=== PATIENT | male | born 1985 | race Caucasian/White ===

== ENCOUNTER 2022-04-28 22:25 | Emergency (ER) | payer BC, SELFPAY ==
[2022-04-28 22:29] VITALS: BP 127/71; PULSE 94; RESP 16; TEMP 36.9; O2SAT 98
[2022-04-28 23:40] VITALS: PULSE 98; O2SAT 98
[2022-04-28 23:42] VITALS: BP 138/80; PULSE 89; O2SAT 100
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
[2022-04-29 02:46] VITALS: BP 112/71; PULSE 80; RESP 16; O2SAT 100
[2022-04-29 02:50] LABS: Add Manual Diff / Slide Review NO; Basophils Absolute Auto 0 /uL (0-100); Basophils Percent Auto 0.2 % (0-2); Eosinophils Absolute Auto 0 /uL (0-450); Eosinophils Percent Auto 0.3 % (2-4); Hemoglobin 14.2 g/dL (13.5-17.5); Lymphocytes Absolute Auto 1000 /uL (1100-4500); Lymphocytes Percent Auto 11.3 % (25-40); Mean Corpuscular HGB Conc 34.7 % (30-36); Mean Corpuscular Hemoglobin 32.2 PG (26-34); Mean Corpuscular Volume 92.7 fL (80-100); Monocytes Absolute Auto 300 /uL (0-900); Neutrophils Absolute Auto 7200 /uL (1500-7000); Neutrophils Percent Auto 84.2 % (50-75); Platelet Count 251 X10^3/uL (150-400); Red Blood Cell Count 4.42 X10^6/uL (4.5-5.9); Red Cell Distribution Width 13.1 % (11.6-14.8); White Blood Cell Count 8.5 X10^3/uL (4.5-11.0)
[2022-04-29 02:57] LABS: BUN Creatinine Ratio 18.3 (6-22); Blood Urea Nitrogen 17 mg/dL (9-20); Calcium 9.5 mg/dL (8.4-10.2); Carbon Dioxide 28 mmol/L (22-32); Chloride 105 mmol/L (98-107); Estimated Glomerular Filt Rate > 60 mL/min (>60); Glucose 116 mg/dL (70-100); HEMOLYSIS 19 (0-50); Potassium 3.9 mmol/L (3.4-5.1); Sodium 141 mmol/L (137-145)
[2022-04-29 04:51] VITALS: BP 103/75; PULSE 85; O2SAT 100
[2022-04-29] MEDS: CYCLOBENZAPRINE 10 MG PREPACK 1 BOTTLE MISC (04:59)
[2022-04-29] MEDS: ONDANSETRON 4 MG ODT PREPACK 1 BOTTLE MISC (04:59)
[2022-04-29] MEDS: OXYCODONE/APAP 5/325 PREPACK 1 BOTTLE MISC (04:59)
[2022-04-29 05:02] VITALS: PULSE 70; O2SAT 99
== END 2022-04-29 05:02 | disposition home or self-care (01) ==
PROVIDERS: Emergency Provider Emergency Medicine
DX: S01.81XA Laceration without foreign body of other part of head, initial encounter (principal); S32.019A Unspecified fracture of first lumbar vertebra, initial encounter for closed fracture; S32.029A Unspecified fracture of second lumbar vertebra, initial encounter for closed fracture; S32.039A Unspecified fracture of third lumbar vertebra, initial encounter for closed fracture; W19.XXXA Unspecified fall, initial encounter
CPT/HCPCS: 13132; 36415; 74177; 80048; 81003; 85025; 99284; Q9967